=== PATIENT | female | born 1965 | race Caucasian/White ===

== ENCOUNTER 2017-03-08 22:11 | Emergency (ER) | payer OTHER ==
[2017-03-09 01:36] LABS: URINE BLOOD (Dip) POC 2+ (NEGATIVE); URINE GLUCOSE (Dip) POC Negative (NEGATIVE); URINE KETONES (Dip) POC Negative (NEGATIVE); URINE LEUKOCYTE EST (Dip) POC Trace (NEGATIVE); URINE NITRITE (Dip) POC Positive (NEGATIVE); URINE TOTAL PROTEIN POC 2+ (NEGATIVE)
[2017-03-09 01:36] LABS: URINE PH (Dip) POC 5.5 (5.0-8.5)
[2017-03-09] MEDS: morphine 2 MG INJ IV (01:48)
[2017-03-09] MEDS: ONDANSETRON 4 MG INJ IV ×2 (01:48→03:53)
[2017-03-09 01:53] LABS: ADD MAN DIFF? NO
[2017-03-09 01:54] LABS: WHITE BLOOD COUNT 12.5 10^3/ul (4.8-10.8)
[2017-03-09 01:54] LABS: BASOPHIL # 0.1 10^3/ul (0.0-0.1); BASOPHILS % 0.4 % (0.0-2.0); EOSINOPHILS # 0.4 10^3/ul (0.0-0.5); EOSINOPHILS % 3.4 % (0.0-7.0); HEMOGLOBIN 10.7 g/dl (12.0-16.0); LYMPHOCYTES # 2.6 10^3/ul (0.8-2.9); MEAN CORPUSCULAR HEMOGLOBIN 27.9 pg (29.0-33.0); MEAN CORPUSCULAR HGB CONC 32.4 g/dl (32.0-37.0); MEAN CORPUSCULAR VOLUME 86.2 fl (82.0-101.0); MEAN PLATELET VOLUME 10.4 fl (7.4-10.4); MONOCYTE # 1.1 10^3/ul (0.3-0.9); MONOCYTES % 8.8 % (0.0-11.0); NEUTROPHIL # 8.3 10^3/ul (1.6-7.5); NEUTROPHILS % 66.1 % (39.0-77.0); PLATELET COUNT 266 10^3/UL (140-415); RED BLOOD COUNT 3.83 10^6/ul (4.20-5.40); RED CELL DISTRIBUTION WIDTH 13.6 % (11.5-14.5)
[2017-03-09 02:22] LABS: ALANINE AMINOTRANSFERASE 38 IU/L (13-69); ALBUMIN 3.8 g/dl (3.3-4.9); ALBUMIN/GLOBULIN RATIO 0.97; ALKALINE PHOSPHATASE 99 IU/L (42-121); ASPARTATE AMINO TRANSFERASE 27 IU/L (15-46); BILIRUBIN,INDIRECT 0.1 mg/dl (0-1.1); BILIRUBIN,TOTAL 0.1 mg/dl (0.2-1.3); BLOOD UREA NITROGEN 17 mg/dl (7-20); CALCIUM 9.4 mg/dl (8.4-10.2); CARBON DIOXIDE 30 mmol/L (21-31); CHLORIDE 103 mmol/L (97-110); CREATININE 1.12 mg/dl (0.44-1.00); GLUCOSE 104 mg/dl (70-220); LIPASE 301 U/L (23-300); SODIUM 140 mmol/L (135-144); TOTAL PROTEIN 7.7 g/dl (6.1-8.1)
[2017-03-09 02:36] LABS: ANION GAP 11 (8-16); POTASSIUM 3.7 mmol/L (3.5-5.1)
[2017-03-09] MEDS: CIPROFLOXACIN 500 MG TAB PO (02:58)
[2017-03-09] MEDS: morphine 4 MG/ML VIAL IV (03:53)
== END 2017-03-09 04:30 | disposition home or self-care (01) ==
LOC: E/R 22:11
DX: N39.0 Urinary tract infection, site not specified (principal); K80.50 Calculus of bile duct without cholangitis or cholecystitis without obstruction; K76.0 Fatty (change of) liver, not elsewhere classified; D64.9 Anemia, unspecified; I10 Essential (primary) hypertension; R40.2252 Coma scale, best verbal response, oriented, at arrival to emergency department; R40.2142 Coma scale, eyes open, spontaneous, at arrival to emergency department; R40.2362 Coma scale, best motor response, obeys commands, at arrival to emergency department
CPT/HCPCS: 36415; 76705; 80053; 81003; 83690; 85025; 96374; 96375; 96376; 99285-25

== ENCOUNTER 2017-04-30 17:38 | Emergency (ER) | payer OTHER ==
[2017-04-30] MEDS: SOD CHLORIDE 0.9% 1,000 ML IV (23:21)
[2017-04-30 23:34] LABS: ADD MAN DIFF? NO
[2017-04-30 23:36] LABS: BASOPHIL # 0.1 10^3/ul (0.0-0.1); BASOPHILS % 0.6 % (0.0-2.0); EOSINOPHILS % 8.2 % (0.0-7.0); HEMATOCRIT 34.7 % (37.0-47.0); HEMOGLOBIN 11.3 g/dl (12.0-16.0); LYMPHOCYTES # 4.2 10^3/ul (0.8-2.9); LYMPHOCYTES % 35.4 % (15.0-51.0); MEAN CORPUSCULAR HEMOGLOBIN 27.5 pg (29.0-33.0); MEAN CORPUSCULAR HGB CONC 32.6 g/dl (32.0-37.0); MEAN CORPUSCULAR VOLUME 84.4 fl (82.0-101.0); MEAN PLATELET VOLUME 10.3 fl (7.4-10.4); MONOCYTES % 8.1 % (0.0-11.0); NEUTROPHIL # 5.6 10^3/ul (1.6-7.5); NEUTROPHILS % 47.5 % (39.0-77.0); PLATELET COUNT 298 10^3/UL (140-415); RED BLOOD COUNT 4.11 10^6/ul (4.20-5.40); RED CELL DISTRIBUTION WIDTH 13.7 % (11.5-14.5)
[2017-04-30 23:36] LABS: WHITE BLOOD COUNT 11.9 10^3/ul (4.8-10.8)
[2017-04-30] MEDS: LORAZEPAM 2 MG INJ IV (23:59)
[2017-05-01 00:01] LABS: ALANINE AMINOTRANSFERASE 41 IU/L (13-69); ALBUMIN 3.7 g/dl (3.3-4.9); ALKALINE PHOSPHATASE 111 IU/L (42-121); ANION GAP 12 (8-16); ASPARTATE AMINO TRANSFERASE 29 IU/L (15-46); BLOOD UREA NITROGEN 18 mg/dl (7-20); CALCIUM 9.5 mg/dl (8.4-10.2); CARBON DIOXIDE 30 mmol/L (21-31); CHLORIDE 107 mmol/L (97-110); CREATININE 1.09 mg/dl (0.44-1.00); GLUCOSE 96 mg/dl (70-220); POTASSIUM 3.4 mmol/L (3.5-5.1); SODIUM 146 mmol/L (135-144); TOTAL PROTEIN 7.4 g/dl (6.1-8.1)
[2017-05-01 00:12] LABS: B-TYPE NATRIURETIC PEPTIDE 62 PG/ML (0-125); TROPONIN-I 0.017 ng/ml (0.00-0.12)
[2017-05-01 00:18] LABS: FREE THYROXINE INDEX (Calc) 2.75 ug/ml (0.65-3.89); T3 UPTAKE 33.5 % (23.5-40.5); T4 (THYROXINE) 8.2 ug/dl (5.5-11.0)
[2017-05-01] MEDS: ACETAMINOPHEN 500 MG TAB PO (02:50)
== END 2017-05-01 03:36 | disposition home or self-care (01) ==
LOC: E/R 05-01 03:36
DX: R00.2 Palpitations (principal); I10 Essential (primary) hypertension
CPT/HCPCS: 36415; 71045; 80053; 83880; 84436; 84443; 84479; 84484; 85025; 93005; 96374; 99285-25

== ENCOUNTER 2017-09-02 16:39 | Emergency (ER) | payer OTHER ==
[2017-09-02] MEDS: SODIUM CHLORIDE 0.9% 1L BAG IV* (17:24)
[2017-09-02] MEDS: CEFEPIME 2GM/50 ML (PMX) 50 ML IVPB (17:24)
[2017-09-02] MEDS: ACETAMINOPHEN 325 MG TAB PO (17:24)
[2017-09-02] MEDS: ONDANSETRON 4 MG INJ IV (17:24)
[2017-09-02 17:25] LABS: ADD MAN DIFF? NO
[2017-09-02 17:30] LABS: BASOPHILS % 0.3 % (0.0-2.0); EOSINOPHILS # 0.2 10^3/ul (0.0-0.5); EOSINOPHILS % 1.4 % (0.0-7.0); HEMATOCRIT 32.8 % (37.0-47.0); HEMOGLOBIN 10.8 g/dl (12.0-16.0); LYMPHOCYTES # 2.1 10^3/ul (0.8-2.9); LYMPHOCYTES % 17.8 % (15.0-51.0); MEAN CORPUSCULAR HEMOGLOBIN 27.8 pg (29.0-33.0); MEAN CORPUSCULAR HGB CONC 32.9 g/dl (32.0-37.0); MEAN CORPUSCULAR VOLUME 84.5 fl (82.0-101.0); MEAN PLATELET VOLUME 10.2 fl (7.4-10.4); MONOCYTES % 8.2 % (0.0-11.0); NEUTROPHIL # 8.5 10^3/ul (1.6-7.5); PLATELET COUNT 241 10^3/UL (140-415); RED BLOOD COUNT 3.88 10^6/ul (4.20-5.40); RED CELL DISTRIBUTION WIDTH 14.1 % (11.5-14.5)
[2017-09-02 17:30] LABS: WHITE BLOOD COUNT 11.8 10^3/ul (4.8-10.8)
[2017-09-02 17:47] LABS: ALANINE AMINOTRANSFERASE 40 IU/L (13-69); ALBUMIN 3.7 g/dl (3.3-4.9); ALBUMIN/GLOBULIN RATIO 1.02; ALKALINE PHOSPHATASE 89 IU/L (42-121); ANION GAP 16 (8-16); ASPARTATE AMINO TRANSFERASE 34 IU/L (15-46); BILIRUBIN,INDIRECT 0.2 mg/dl (0-1.1); BILIRUBIN,TOTAL 0.2 mg/dl (0.2-1.3); BLOOD UREA NITROGEN 17 mg/dl (7-20); CALCIUM 9.1 mg/dl (8.4-10.2); CARBON DIOXIDE 26 mmol/L (21-31); CHLORIDE 105 mmol/L (97-110); CREATININE 1.15 mg/dl (0.44-1.00); GLUCOSE 106 mg/dl (70-220); POTASSIUM 3.9 mmol/L (3.5-5.1); SODIUM 143 mmol/L (135-144); TOTAL PROTEIN 7.3 g/dl (6.1-8.1)
[2017-09-02 17:50] LABS: INR 0.93; PROTIME 12.5 Sec (11.9-14.9)
[2017-09-02 17:51] LABS: PARTIAL THROMBOPLASTIN TIME 28.8 Sec (25.0-35.0)
[2017-09-02 17:52] LABS: ADD UMIC YES; UR ASCORBIC ACID NEGATIVE (NEGATIVE); UR BACTERIA MANY /HPF (NONE SEEN); UR BILIRUBIN (Dip) NEGATIVE (NEGATIVE); UR BLOOD (Dip) 3+ mg/dL (NEGATIVE); UR CLARITY SLIGHTLY CLOUDY (CLEAR); UR COLOR YELLOW (YELLOW); UR GLUCOSE (Dip) NEGATIVE (NEGATIVE); UR KETONES (Dip) NEGATIVE (NEGATIVE); UR LEUKOCYTE ESTERASE (Dip) 1+ Leu/ul (NEGATIVE); UR MUCUS FEW /HPF (NONE SEEN); UR NITRITE (Dip) POSITIVE (NEGATIVE); UR RBC 49 /HPF (0-5); UR SPECIFIC GRAVITY (Dip) 1.013 (1.003-1.030); UR TOTAL PROTEIN (Dip) 2+ mg/dl (NEGATIVE); UR UROBILINOGEN (Dip) NEGATIVE (NEGATIVE); UR WBC 41 /HPF (0-5)
[2017-09-02 17:58] LABS: LACTIC ACID 1.9 mmol/L (0.5-2.0)
[2017-09-02 17:59] LABS: TROPONIN-I < 0.010 ng/ml (0.000-0.120)
[2017-09-02] MEDS: morphine 4 MG/ML VIAL IV (20:04)
[2017-09-02 20:34] LABS: LACTIC ACID 0.9 mmol/L (0.5-2.0)
[2017-09-02 22:22] LABS: LACTIC ACID 0.7 mmol/L (0.5-2.0)
== END 2017-09-03 00:33 | disposition short-term general hospital (02) ==
LOC: E/R 09-03 00:33
DX: A41.9 Sepsis, unspecified organism (principal); N39.0 Urinary tract infection, site not specified; I10 Essential (primary) hypertension; R40.2142 Coma scale, eyes open, spontaneous, at arrival to emergency department; R40.2362 Coma scale, best motor response, obeys commands, at arrival to emergency department; R40.2252 Coma scale, best verbal response, oriented, at arrival to emergency department
CPT/HCPCS: 36415; 71045; 74176; 76705; 80053; 81001; 83605; 84484; 85025; 85610; 85730; 87040; 87086; 93005; 96374; 96375; 99291-25